=== PATIENT | female | born 1990 | race Hispanic/Latino ===

== ENCOUNTER 2018-02-05 07:16 | Emergency (ER) | payer SELFPAY ==
[2018-02-05] MEDS ORDERED: ONDANSETRON ODT 4 MG TAB ONE (07:36)
== END 2018-02-05 08:07 | disposition home or self-care (01) ==
LOC: EDH 07:16
DX: F41.1 Generalized anxiety disorder (principal)
CPT/HCPCS: 82948; 93005

== ENCOUNTER 2023-11-18 04:19 | Emergency (ER) | payer MEDICAID, OTHER ==
[2023-11-18 04:55] VITALS: BP 147/88; PULSE 98; RESP 20; O2SAT 100
[2023-11-18] MEDS ORDERED: IBUP-2070 PO (20:02)
[2023-11-18] MEDS ORDERED: NEO/3.5O OD (20:02)
== END 2023-11-18 05:05 | disposition left against medical advice (07) ==
LOC: EDH 04:19
DX: M79.89 Other specified soft tissue disorders (principal); Z53.21 Procedure and treatment not carried out due to patient leaving prior to being seen by health care provider

== ENCOUNTER 2023-11-18 16:57 | Emergency (ER) | payer MEDICAID ==
[~2023-11-18] VITALS: Ht 157.5 cm; Wt 52.2 kg
[2023-11-18 17:17] VITALS: BP 137/79; PULSE 97; RESP 18
[2023-11-18] MEDS ORDERED: NEO/3.5O OD (20:02)
[2023-11-18] MEDS ORDERED: IBUP-2070 PO (20:02)
[2023-11-18] MEDS ORDERED: HYDROCODONE/ACETAMINOPHEN 5/325 MG TAB PO ONE (20:30)
[2023-11-18] MEDS ORDERED: IBUPROFEN 600 MG TABLET PO ONE (20:30)
[2023-11-18] MEDS ORDERED: ONDANSETRON ODT 4MG TAB SL ONE (20:30)
== END 2023-11-18 20:18 | disposition home or self-care (01) ==
LOC: EDH 16:57
DX: S00.83XA Contusion of other part of head, initial encounter (principal); S10.93XA Contusion of unspecified part of neck, initial encounter; S00.03XA Contusion of scalp, initial encounter; J45.909 Unspecified asthma, uncomplicated; F41.9 Anxiety disorder, unspecified; Y04.8XXA Assault by other bodily force, initial encounter; Y93.89 Activity, other specified; Y92.89 Other specified places as the place of occurrence of the external cause; Y99.8 Other external cause status
CPT/HCPCS: 70450; 70486; 72125; 81025